=== PATIENT | male | born 1975 | race Asian ===

== ENCOUNTER 2018-09-03 10:19 | Outpatient (CLI) | payer OTHER | END 2018-09-03 10:20 | disposition home or self-care (01) | LOC: SC 10:19 | PROVIDERS: ATTEND Internal Medicine Pulmonary Disease | DX: G47.33 Obstructive sleep apnea (adult) (pediatric) (principal) | CPT/HCPCS: 99203; 99212 ==

== ENCOUNTER 2018-12-21 08:56 | Outpatient (CLI) | payer OTHER ==
--- NOTE | 2018-12-21 15:08 | MRI Report ---
Reason: SACROCOCCYGEAL DISORDERS,NOT ELSEWHERE CLASSIFIED Procedure Date: 12/21/2018 Accession Number: [id number] / [id number] Procedure: MRI - Lumbar Spine W/O CPT Code: FULL RESULT: EXAM: MRI LUMBAR SPINE WITHOUT CONTRAST EXAM DATE: 12/21/2018 09:42 AM. CLINICAL HISTORY: Sacrococcygeal disorders, not elsewhere classified. COMPARISON: None. TECHNIQUE: Multiplanar, multisequence T1-weighted and fluid-sensitive sequences of the lumbar spine from T12 to S1 without contrast. Other: None. FINDINGS: Spinal Canal: The conus terminates at L1. The conus medullaris and cauda equina are unremarkable. Alignment: No scoliosis or spondylolisthesis. Bone Marrow: Five [id number] lumbar vertebral bodies are assumed. Multiple small scattered chronic degenerative Schmorl's nodes. No acute marrow edema, vertebral body collapse or displaced pars defect. Disk Levels/Facets: T12-L1: Unremarkable. L1-L2: No focal disk herniation or stenosis. L2-L3: No focal disk herniation or stenosis. L3-L4: Slight disk degeneration. Minimal circumferential bulge but no focal extrusion or significant stenosis. L4-L5: Mild disk degeneration. Shallow circumferential disk bulge. Mild bilateral foraminal stenosis. Unremarkable facets. Patent central canal. L5-S1: Mild disk space dehydration and narrowing. No focal extrusion. Minimal circumferential bulge. Minimal facet arthropathy. Musculature: Unremarkable. Other: None. IMPRESSION: Minimal to mild early degenerative changes at multiple levels. Mild foraminal stenosis at L4-L5 bilaterally. No significant central stenosis or focal disk extrusion. Multiple small chronic degenerative Schmorl's nodes. Comment: The following findings are so common in adults without low back pain that while we report their presence, they must be interpreted with caution and in the context of the clinical situation. (Reference Marilyn et al, Spine 2001) Prevalence of findings in patients without low back pain: Disk degeneration (any evidence): 92% Disk desiccation/T2 signal loss: 83% Disk height loss: 56% Disk bulge: 64% Disk protrusion: 32% Annular tear/high intensity zone: 38% RADIA
== END 2018-12-21 08:57 | disposition home or self-care (01) ==
LOC: DI 08:56
PROVIDERS: ATTEND Physician Assistant
DX: M51.36 Other intervertebral disc degeneration, lumbar region (principal); M48.061 Spinal stenosis, lumbar region without neurogenic claudication; M51.37 Other intervertebral disc degeneration, lumbosacral region; M47.817 Spondylosis without myelopathy or radiculopathy, lumbosacral region
CPT/HCPCS: 72148

== ENCOUNTER 2022-01-31 08:00 | Outpatient (CLI) | payer OTHER ==
--- NOTE | 2022-01-31 15:34 | XRAY Report ---
PROCEDURE: Elbow 3 View LT INDICATIONS: ELBOW FX TECHNIQUE: 3 views of the elbow were acquired. COMPARISON: 01/26/2022 from [facility]. FINDINGS: Bones: Unchanged appearance of comminuted impacted mildly displaced fracture of the left radial head and neck. No suspicious bony lesions. Soft tissues: Continued elbow joint effusion. No suspicious soft tissue calcifications. IMPRESSION: Unchanged appearance of comminuted, impacted, mildly displaced fracture of the left radial head and n jose. Reviewed by: Ted Null MD on 01/31/2022 3:32 PM PDT Approved by: Ted Null MD on 01/31/2022 3:32 PM PDT Station ID: [id number]
== END 2022-01-31 23:59 | disposition home or self-care (01) ==
LOC: DI.WOS 08:00
PROVIDERS: ATTEND Orthopaedic Surgery
DX: S52.122D Displaced fracture of head of left radius, subsequent encounter for closed fracture with routine healing (principal); S52.132D Displaced fracture of neck of left radius, subsequent encounter for closed fracture with routine healing

== ENCOUNTER 2022-12-20 09:23 | Outpatient (CLI) | payer OTHER ==
--- NOTE | 2022-12-20 10:16 | SLEEP CARE CONSULTATION ---
Information from patient questionnaire entered by Fide De La Rosa. I have reviewed and concur with the information entered by Fide De La Rosa. This document represents the service I personally performed and the decisions made by me, Maty Hansen ARNP. History of Present Illness Service Date and Time: 12/20/2022 09 Reason for Visit: New patient, sleep apnea on CPAP therapy, Re-establish care Chief Complaint: reports: Unrefreshed sleep, Snoring, Excessive daytime sleepiness, Observed pauses in breathing, Fatigue, Other (Update supplies) Date of Onset: (answers are for prior to CPAP) Usual bedtime: 0100 Time it takes to fall asleep: 30-60 minutes Snores at night: Yes Observed to quit breathing while asleep: Yes Sleeps alone due to snoring: Yes Number of times waking at night: 6-7 Reasons for waking at night: reports: Snoring, Gasping for air Toss, Turn, or Twitch while sleeping: Yes Recalls having dreams: No Usually gets out of bed at: 0900 Feels refreshed in the morning: No Morning headache: Yes (about an hour to resolve) Sleepy or fatigued during the day: Yes Ever fallen asleep while driving: Yes Takes day naps: Yes Dreams during day naps: No Prior sleep studies: Yes Year and Where: September 2016, [facility] Additional HPI information: MAGGY CERNA was previously diagnosed to have severe, AHI 33.5, obstructive sleep apnea-hypopnea syndrome as documented by Dr. Lawson in his notes when last seen in office in 08/2018 (we do not have a copy of sleep study) and comes in today to re-establish care for CPAP therapy. - Parasomnia Symptoms Ever been unable to move upon waking from sleep: No Walks in sleep: No Talks in sleep: Yes Ever acted out dreams in sleep: Yes Ever felt weak in the knees when startled or emotional: No Bothered by creepy, crawly, restless sensations in legs: No Problems with memory or concentration: Yes CPAP Compliance Data - Data Reviewed with Patient Average duration of nightly device use: 7 hours 25 minutes Compliance rate %: 100 (180/180 days used) Current pressure setting (cmH2O): 9-11 Average residual AHI: 3.0 Central apnea: 0 Obstructive apnea: 2.8 Hypopnea: 0.2 Compliance data discussion: He has been purchasing his supplies online. He has a ResMed Airsense 10 that was received in 09/2016. He is using a Respironics nasal cushion. Subjective Patient concerns: reports: mask discomfort. denies: aerophagia, air blowing in eyes, mask leak noise, condensation in mask/hose, nasal congestion, dry mouth, nose, throat, epistaxis Observed to snore while using device: No Current pressure setting perceived as: too low On therapy, patient: reports: sleeping better, awakening more refreshed, being more awake and alert during the day, more rested overall. denies: drowsiness while driving Initial Electra Sleepiness Scale score: 22 (12/20/2022) Past Medical History Past Medical History: reports: Other (no significant medial history) Social History The patient's occupation is a AT. Patient is and lives in [place]. Have you smoked in the past 12 months: No Cigarettes per day (20/pack): 20 Years of smokin Quit date: 2020 Smoking Pack Years: 23.0 Alcohol use: No Caffeine use: Yes Caffeine amount and frequency: 1 drink daily Family History Family history of sleep disordered breathing: No (he is adopted) Allergies and Home Medications Known drug allergies: No Drug allergies reviewed: Yes Home medication list reviewed: Yes (no daily medications) Allergy and home medication list: Allergies No Known Drug Allergies Allergy (Verified 12/19/22 21:07) Review of Systems Cardiovascular: denies: high blood pressure Respiratory: denies: shortness of breath Gastrointestinal: denies: heartburn Urinary: reports: frequency Neurological: denies: headaches Psychiatric: reports: anxiety Ear/Nose/Throat: denies: tonsillectomy Musculoskeletal: reports: joint pain Physical Exam Vital signs obtained and entered by: Maty Gillette NP Blood Pressure: 119/80 Cuff size: wrist (right) Heart Rate: 75 O2 Saturation: 98 Height: 5 ft 2 in Weight: 192 lb 12.8 oz Body Mass Index: 35.2 BMI Classification: Obese Heart: regular rate and rhythm Lungs: clear bilaterally Impression and Plan 1. Obstructive Sleep Apnea-Hypopnea Syndrome, severe, with good treatment compliance and good apnea control. On CPAP therapy, the patient has better sleep quality and is more rested overall. His ResMed is over 5 years old and he needs a DME supplier. We are requesting copy of sleep study. Once we have this, I will order a new device and have my metal control coordinator inform of DME options today. A DWO prescription will then be made. Patient advised to contact this office if further supply problems. He feels the pressure is too low. He cannot feel the pressure when he puts it on. The patients pressure will be changed to autoCPAP 10-14 cmH20. Patient advised to contact me if pressure change is uncomfortable so that it can be adjusted. Goals for apnea control discussed. Patient's apnea severity and rationale for treatment to reduce apnea, improve sleep quality and reduce cardiovascular and cerebrovascular events was reviewed. I also reviewed the benefit of consistent device use of CPAP for hypertension. 2. Obesity, unspecified. Currently patients BMI is 35.2. Obesity increases the risk of apnea, CPAP pressure requirements and overall health risks especially cardiovascular and diabetes. Thus patient is advised to lose weight. * Change auto CPAP pressure to 10-14 cmH2O * Transfer DME * Update machine once we have a copy of records * Update supply prescription * Notify me if snoring with mask or feeling that the pressure is too much or too little * Attempt to lose weight * Call this office if any problems using CPAP * Return for follow up one month after obtaining new device, or sooner if concerns arise Counseling Topics: Spare mask, Weight loss health impact Visit Type: In Office Time Spent with Patient (minutes): 38 Provider Statement: I spent 100% of the Face to Face Visit with the patient with greater than 50% spent counseling the patient and coordination of care.
[2022-12-20 10:20] VITALS: BP 119/80
== END 2022-12-20 09:24 | disposition home or self-care (01) ==
LOC: SC 09:23
PROVIDERS: ATTEND Nurse Practitioner Family
DX: G47.33 Obstructive sleep apnea (adult) (pediatric) (principal); E66.9 Obesity, unspecified; Z68.35 Body mass index [BMI] 35.0-35.9, adult; Z87.891 Personal history of nicotine dependence
CPT/HCPCS: 99203; 99212